=== PATIENT | female | born 1970 | race Asian ===

== ENCOUNTER 2020-04-09 11:41 | Emergency (ER) | payer MEDICAID ==
[~2020-04-09] VITALS: Ht 170.2 cm; Wt 52.2 kg
--- NOTE | 2020-04-09 11:43 | NUR ---
PT BIB [facility] TO ER BED 7
[2020-04-09 11:44] VITALS: BP 162/90
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
--- NOTE | 2020-04-09 12:05 | NUR ---
XRAY IS AT BEDSIDE.
--- NOTE | 2020-04-09 12:09 | NUR ---
DR. ELAINE EVALUATING PT AT BEDSIDE.
[2020-04-09] MEDS ORDERED: LIDOCAINE MPF 1% 10 MG/ML VIAL INJ ONE ×2 (12:10→12:48)
[2020-04-09] MEDS ORDERED: LIDOCAINE MPF 1% 5 ML ONE ×2 (12:11→12:49)
[2020-04-09] MEDS ORDERED: CYCLOBENZAPRINE 10 MG TAB PO ONE (12:20)
[2020-04-09] MEDS ORDERED: KETOROLAC 30 MG/ML VIAL IM ONE (12:20)
--- NOTE | 2020-04-09 12:22 | NUR ---
NOTIFIED DR. ELAINE PT HAS IV ACCESS. PER DR. ELAINE, ADMIN THE TORADOL 30 MG VIA IVP INSTEAD OF IM ROUTE.
--- NOTE | 2020-04-09 12:30 | NUR ---
DR. ELAINE AT BEDSIDE FOR PROCEDURE.
[2020-04-09] MEDS ORDERED: MORPHINE SULFATE 2 MG/ML SYR IVP ONE (12:46)
[2020-04-09] MEDS ORDERED: MORPHINE SULFATE 2 MG/ML SYR ONE (12:48)
[2020-04-09] MEDS ORDERED: BACITRACIN OINT 500 UNITS/GM PKT TP ONE ×2 (12:58→12:59)
[2020-04-09] MEDS ORDERED: CEPHALEXIN 500 MG CAP PO ONE (13:05)
[2020-04-09] MEDS ORDERED: SULFAMETH/TRIMETH DS 800/160MG 1 TAB PO ONE (13:05)
--- NOTE | 2020-04-09 13:05 | NUR ---
XRAY AT BEDSIDE
--- NOTE | 2020-04-09 13:07 | NUR ---
DR. ELAINE SPEAKING WITH IN [facility] [employer]
--- NOTE | 2020-04-09 13:51 | NUR ---
Patient discharged with v/s stable. Written and verbal after care instructions given and explained. Patient alert, oriented and verbalized understanding of instructions. Ambulatory with steady gait. All questions addressed prior to discharge. ID band removed. Patient advised to follow up with PMD. Rx of flexeril, keflex, ibuprofen given. Patient educated on indication of medication including possible reaction and side effects; see PCP in 2-3 days; Return to ER in 10 days for suture removal; see field identification specialist fidelia. Opportunity to ask questions provided and answered. CD images given to pt. Pt amb to lobby with even steady gait. Family members waiting in lobby to drive pt to home.
[2020-04-09 14:46] VITALS: BP 115/73
== END 2020-04-09 13:51 | disposition home or self-care (01) ==
LOC: MED 11:41
DX: S62.633A Displaced fracture of distal phalanx of left middle finger, initial encounter for closed fracture (principal); S16.1XXA Strain of muscle, fascia and tendon at neck level, initial encounter; V89.2XXA Person injured in unspecified motor-vehicle accident, traffic, initial encounter; Y93.89 Activity, other specified; Y92.89 Other specified places as the place of occurrence of the external cause; Y99.8 Other external cause status
CPT/HCPCS: 12002; 72050; 73130; 90471; 90715; 96372; 96374; 99284; J1885; J2001; J2270; Q0092

== ENCOUNTER 2020-04-20 08:53 | Emergency (ER) | payer OTHER, MEDICAID ==
[~2020-04-20] VITALS: Ht 170.2 cm; Wt 63.5 kg
[2020-04-20 09:01] VITALS: BP 113/72
--- NOTE | 2020-04-20 09:07 | NUR ---
PT AMB TO BED 11.
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
[2020-04-20] MEDS ORDERED: BACITRACIN OINT 500 UNITS/GM PKT TP ONE (09:50)
--- NOTE | 2020-04-20 09:53 | NUR ---
ERMD AT BEDSIDE FOR MSE.
[2020-04-20 10:12] VITALS: BP 113/72
--- NOTE | 2020-04-20 10:14 | NUR ---
Patient discharged with v/s stable. Written and verbal after care instructions given and explained TO PT AND pt SON d/t language barrier.Patient verbalized understanding. Ambulatory with steady gait. All questions addressed prior to discharge. Advised to follow up with PMD.
== END 2020-04-20 10:14 | disposition home or self-care (01) ==
LOC: MED 08:53
DX: S61.213D Laceration without foreign body of left middle finger without damage to nail, subsequent encounter (principal); V49.9XXD Car occupant (driver) (passenger) injured in unspecified traffic accident, subsequent encounter
CPT/HCPCS: 99282; 99292